=== PATIENT | female | born 1945 | race Caucasian/White ===

== ENCOUNTER 2021-09-13 20:25 | Emergency (ER) | payer MEDICARE, OTHER, MEDICAID ==
[~2021-09-13 20:25] MED LIST: ALBUTEROL2.5 MG/3 M NEB; ALENDRONATE SOD70 MG PO; ALL DAY ALLERGY10 M2 PO; ANTIVERT 25MG T25 MG PO; DIAMOX 250 MG250 MG PO; IPRAT-ALBUT 0.5-3 ML NEB; K-DUR TAB 10 M10 MEQ PO; LANTUS SOL100 UNIT/1 SQ; LASIX20 MG PO; LOPRESSOR 25 MG25 MG PO; METHYLPREDNISOLO4 M1 PO; MYCOSTATIN CREA15 GM TOP; PLETAL 100 MG100 MG PO; PRAVACHOL80 MG PO; PRINIVIL10 MG PO; PROTONIX40 MG PO; RANEXA1000 MG PO; TRADJENTA5 MG PO; ULTRAM50 MG PO; VITAMIN D250000 UNIT PO; ZETIA10 MG PO
[2021-09-13 21:39] LABS: HEMOGLOBIN 13.1 gm/dl (12.3-15.3); RED BLOOD COUNT 4.36 M/UL (4.00-5.10); WHITE BLOOD COUNT 3.5 K/UL (4.5-11.0)
[2021-09-13 23:01] LABS: BUN/CREATININE RATIO 19 (0-10)
[2021-09-13] MEDS ORDERED: OMNICEF 300 MG300 MG PO (23:32)
== END 2021-09-14 00:13 | disposition home or self-care (01) ==
LOC: ER1 20:25
PROVIDERS: Family Medicine
DX: U07.1 COVID-19 (principal); N39.0 Urinary tract infection, site not specified; J90 Pleural effusion, not elsewhere classified; J44.9 Chronic obstructive pulmonary disease, unspecified; E11.9 Type 2 diabetes mellitus without complications; J96.11 Chronic respiratory failure with hypoxia; K21.9 Gastro-esophageal reflux disease without esophagitis; G93.40 Encephalopathy, unspecified; D69.6 Thrombocytopenia, unspecified; Z99.2 Dependence on renal dialysis; R31.9 Hematuria, unspecified
CPT/HCPCS: 36600; 71045; 80053; 81001; 82550; 82553; 82803; 83605; 83874; 84484; 85025; 86140; 87086; 93005; 96374; 99285; U0002